=== PATIENT | female | born 1955 | race African-American/Black ===

== ENCOUNTER 2019-02-24 16:57 | Emergency (ER) | payer BC ==
[~2019-02-24] VITALS: Ht 154.9 cm; Wt 65.8 kg
[2019-02-24 17:00] VITALS: BP 133/91
[2019-02-24] MEDS ORDERED: ZONISAMIDE 100 MG CAPSULE PO SCH (17:30)
[2019-02-24] MEDS ORDERED: CITA20TA16 PO (18:01)
[2019-02-24] MEDS ORDERED: ZONI100C6 PO (18:01)
[2019-02-24] MEDS ORDERED: MONT10TA22 PO (18:01)
[2019-02-24] MEDS ORDERED: OXCA600T8 PO (18:01)
[2019-02-24] MEDS ORDERED: PRAV10TA40 PO (18:01)
[2019-02-24] MEDS ORDERED: OMEP40CA37 PO (18:01)
== END 2019-02-24 18:30 | disposition home or self-care (01) ==
LOC: ER 16:58
DX: G40.909 Epilepsy, unspecified, not intractable, without status epilepticus (principal); R00.0 Tachycardia, unspecified; Z88.6 Allergy status to analgesic agent